=== PATIENT | female | born 1980 | race Caucasian/White ===

== ENCOUNTER 2022-08-29 05:35 | Day surgery (SDC) | payer OTHER ==
[~2022-08-29] VITALS: Ht 162.6 cm; Wt 74.4 kg
[~2022-08-29 05:35] MED LIST: SINGULAIR10 MG PO
== END 2022-08-29 14:35 | disposition home or self-care (01) ==
LOC: CIR.AMB 05:35
PROVIDERS: ATTEND Obstetrics & Gynecology Maternal & Fetal Medicine
DX: N84.0 Polyp of corpus uteri (principal); Z20.822 Contact with and (suspected) exposure to COVID-19